=== PATIENT | female | born 1970 | race Caucasian/White ===

== ENCOUNTER 2017-07-12 11:16 | Emergency (ER) | payer BC ==
[~2017-07-12] VITALS: Ht 157.5 cm; Wt 80.0 kg
[~2017-07-12 11:16] MED LIST: AMOXICILLIN500 MG PO
[2017-07-12 12:01] LABS: HEMATOCRIT 38.5 % (37.0-47.0); HEMOGLOBIN 13.1 g/dl (12.0-16.0); IMMATURE GRANULOCYTES 0.3 % (0.0-1.0); MEAN CORPUSCULAR HGB 31.6 pG CALC (26.0-32.0); NEUT# 3.27 thou/uL (2.00-7.15); RED BLOOD COUNT 4.14 mill/uL (4.20-5.60); URINE BLOOD DIPSTICK SMALL (NEGATIVE); URINE COLOR YELLOW; URINE GLUCOSE - DIPSTICK NEGATIVE (NEGATIVE); URINE KETONE 15 mg/dL (NEGATIVE); URINE LEUK ESTERASE NEGATIVE (NEGATIVE); URINE NITRITE - DIPSTICK NEGATIVE (Negative); URINE PH 5.5 (4.5-8.0); URINE PROTEIN - DIPSTICK NEGATIVE (NEG-TRACE); URINE SPECIFIC GRAVITY >=1.030; URINE UROBILINOGEN - DIPSTICK 0.2 E.U./dL (0.2)
[2017-07-12 12:08] LABS: URINE BILIRUBIN - DIPSTICK SMALL (NEGATIVE)
[2017-07-12 12:09] LABS: URINE CLARITY SLIGHT CLOUDY
[2017-07-12 12:10] LABS: URINE BACTERIA FEW hpf; URINE EPITHELIAL CELLS MODERATE EPI/hpf (0-FEW); URINE MUCUS MODERATE hpf (NONE-FEW); URINE WBC 0-2 WBC/hpf (0-5)
[2017-07-12 12:13] LABS: ALBUMIN 4.5 g/dL (3.2-5.0); ALKALINE PHOSPHATASE 42 u/l (38-126); ANION GAP 18 (6-22 (CALC)); BILIRUBIN, TOTAL 0.9 mg/dL (0.0-1.4); BUN 12 mg/dL (7-17); BUN/CREATININE RATIO 20 (12-20 (CALC)); CALCIUM 9.6 mg/dL (8.4-10.2); CARBON DIOXIDE 21 mmol/l (22-30); CHLORIDE 108 mmol/l (95-108); CREATININE 0.6 mg/dL (0.5-1.0); GFR > 60 ML/MIN (>=60 (CALC)); GFR FOR AFR.AMER. > 60 ML/MIN (>=60 (CALC)); GLUCOSE 86 mg/dL (65-105); SGOT/AST 26 u/l (14-36); SGPT/ALT 50 u/l (9-52); SODIUM 142 mmol/l (137-146); TOTAL PROTEIN 7.9 g/dL (6.3-8.2)
[2017-07-12 12:45] VITALS: BP 155/93
== END 2017-07-12 12:54 | disposition home or self-care (01) | DRG 305 ==
LOC: ED 11:16
PROVIDERS: Emergency Medicine
DX: I10 Essential (primary) hypertension (principal); H53.8 Other visual disturbances; R50.9 Fever, unspecified; R51 Headache

== ENCOUNTER 2019-05-31 06:37 | Emergency (ER) | payer BC ==
[~2019-05-31] VITALS: Ht 157.5 cm; Wt 85.0 kg
[2019-05-31 07:06] LABS: HEMATOCRIT 41.7 % (37.0-47.0); HEMOGLOBIN 13.8 g/dl (12.0-16.0); IMMATURE GRANULOCYTES 0.5 % (0.0-5.0); MEAN CELL VOLUME 93.9 fL CALC (80.0-100.0); MEAN CORPUSCULAR HGB 31.1 pG CALC (26.0-32.0); MEAN CORPUSCULAR HGB CONC 33.1 g/L CALC (32.0-36.0); NEUT# 8.47 thou/uL (2.00-7.15); RED BLOOD COUNT 4.44 mill/uL (4.20-5.60)
[2019-05-31 07:18] LABS: ALBUMIN 4.7 g/dL (3.2-5.0); ALKALINE PHOSPHATASE 57 u/l (38-126); BILIRUBIN, TOTAL 0.8 mg/dL (0.0-1.4); BUN 16 mg/dL (7-17); BUN/CREATININE RATIO 33 (12-20 (CALC)); CHLORIDE 105 mmol/l (95-108); CREATININE 0.5 mg/dL (0.5-1.0); GFR > 60 ML/MIN (>=60 (CALC)); GFR FOR AFR.AMER. > 60 ML/MIN (>=60 (CALC)); POTASSIUM 4.3 mmol/l (3.5-5.1); SGOT/AST 22 u/l (14-36); SODIUM 139 mmol/l (137-146); TOTAL PROTEIN 7.9 g/dL (6.3-8.2)
[2019-05-31 07:22] LABS: ANION GAP 12 (6-22 (CALC)); CARBON DIOXIDE 26 mmol/l (22-30)
[2019-05-31] MEDS ORDERED: PHENERGAN25 MG/TAB PO (07:57)
[2019-05-31] MEDS ORDERED: ONDANSETRON HCL4 MG PO (07:57)
[2019-05-31 08:00] VITALS: BP 133/74
== END 2019-05-31 09:21 | disposition home or self-care (01) | DRG 392 ==
LOC: ED 06:37
PROVIDERS: Family Medicine
DX: K52.9 Noninfective gastroenteritis and colitis, unspecified (principal)